=== PATIENT | female | born 1985 | race Caucasian/White ===

== ENCOUNTER 2016-09-20 03:39 | Inpatient (IN) | payer MEDICAID ==
[2016-09-20] VITALS (9 sets, daily range): BP systolic 99–119; BP diastolic 53–73; PULSE 67–95; TEMP 97.6–98.2
[~2016-09-20] VITALS: Ht 175.3 cm; Wt 75.9 kg
[~2016-09-20 03:39] MED LIST: HEALTH CARE AMERI50% TP; LAN-O-SOOTHE1 OIN TP; MOTRIN 600600 MG/TAB PO; MOTRIN 800800 MG/TAB PO; PERCOCET 325 MG1 TA2 PO; PRENATAL1 TA1 PO; PRENATAL1 TA7 PO; SENOKOT S 50 MG1 TAB PO
[2016-09-20 05:15] LABS: BASO # 0.1 (0.0-0.2); BASO % 0.4 % (0.0-2.0); EOS # 0.1 (0.0-0.7); EOS % 0.7 % (0-4.0); GRAN % 75.5 % (42.2-75.2); HEMATOCRIT 40.7 % (37.0-47.0); HEMOGLOBIN 13.5 g/dl (12.5-16.0); LYMPH # 2.3 (1.2-3.4); LYMPH % 16.1 % (20.0-51.0); MEAN CELL VOLUME 94 fl (80.0-100.0); MEAN CORPUSCULAR HEMOGLOBIN 31 pg (27.0-31.0); MEAN CORPUSCULAR HGB CONC 33 g/dl (33.0-37.0); MEAN PLATELET VOLUME 11.6 fl (7.4-10.4); MONO % 6.7 % (1.7-9.3); PLATELET COUNT 158 K/mm3 (130-400); RED BLOOD COUNT 4.31 M/mm3 (4.10-5.30); REDCELL DISTRIBUTION WIDTH-CV 13.4 % (11.5-14.5); WHITE BLOOD COUNT 14.5 K/mm3 (4.8-10.8)
[2016-09-21 07:06] VITALS: BP 106/63; PULSE 62; TEMP 98.1
[2016-09-21 13:00] VITALS: BP 114/62; PULSE 76; TEMP 98.4
== END 2016-09-21 13:02 | disposition home or self-care (01) | DRG 775 ==
LOC: LDRO 03:39 → OB 03:40 → LDR 03:40 → OB 08:57
PROVIDERS: Student in an Organized Health Care Education/Training Program
PROC: 10E0XZZ Delivery of Products of Conception, External Approach (ICD-10-PCS; principal; 2016-09-20)
DX: O48.0 Post-term pregnancy (principal); Z3A.40 40 weeks gestation of pregnancy; Z37.0 Single live birth
CPT/HCPCS: J2210; J2590